=== PATIENT | male | born 2005 | race African-American/Black ===

== ENCOUNTER 2024-04-14 13:49 | Emergency (ER) | payer OTHER, MEDICAID ==
[~2024-04-14] VITALS: Ht 182.9 cm; Wt 68.3 kg
[~2024-04-14 13:49] MED LIST: ZOFR4T PO
--- NOTE | 2024-04-14 16:06 | ED.PDOC ---
History of Present Illness HPI Comments 18 YEAR OLD MALE PRESENTS TO THE ED WITH A CHIEF COMPLAINT OF TAILBONE PAIN ONSET 3 DAYS. PATIENT STATES HE IS PARAPLEGIC, USES A WHEELCHAIR, WAS GOING TO SIT ON [employer] CHAIR WHEN HE HIT A METAL PART OF CHAIR WITH HIS TAILBONE. PATIENT STATES HE HAS BEEN EXPERIENCING PAIN SINCE THEN, NOTICED PAIN WORSEN TODAY. PMHX PARAPLEGIC, KIDNEY STONES. DENIES LOC, HEAD INJURY, DYSURIA, FLANK PAIN, NAUSEA, VOMITING. NO OTHER SYMPTOMS OR MODIFYING FACTORS PRESENT AT THIS TIME. Chief Complaint: Back Pain Time Seen by MD: 15:50 Primary Care Provider: UNKNOWN Reviewed Notes: Medications, Allergies Allergies: Coded Allergies: NO KNOWN ALLERGIES (Unverified , 05/10/23) Home Meds Active Scripts Ondansetron Odt 4MG Tab (ZOFRAN PO) 4 Mg Tb, 4 MG PO Q6HP PRN, #20 TAB ODT TAB-DISSOLVE IN MOUTH, THEN SWALLOW Prov:KISHOR PRADO Mounika DO 05/10/23 Information Source: Patient Mode of Arrival: Wheelchair Severity: Moderate Timing: Days Duration: Since onset Prehospital treatment: None Past Medical History PAST MEDICAL HISTORY: Kidney Stones Past Medical History (Other): paraplegic Surgical History: Denies all surgeries Family History Family History: Unknown Social History Smoker: Non-Smoker Alcohol: Denies ETOH Use Drugs: Denies Drug Use Lives In: Home Constitutional: denies: chills, diaphoresis, fatigue, fever, malaise, sweats, weakness, others EENTM: denies: blurred vision, double vision, ear bleeding, ear discharge, ear drainage, ear pain, ear ringing, eye pain, eye redness, hearing loss, mouth pain, mouth swelling, nasal discharge, nose bleeding, nose congestion, nose p ain, photophobia, tearing, throat pain, throat swelling, voice changes, others Respiratory: denies: cough, hemoptysis, orthopnea, SOB at rest, shortness of breath, SOB with excertion, stridor, wheezing, others Cardiovascular: denies: chest pain, dizzy spells, diaphoresis, Dyspnea on exertion, edema, irregular heart beat, left arm pain, lightheadedness, palpitations, PND, syncope, others Gastrointestinal: denies: abdomen distended, abdominal pain, blood streaked bowels, constipated, diarrhea, dysphagia, difficulty swallowing, hematemesis, melena, nausea, poor appetite, poor fluid intake, rectal bleeding, rectal pain, vomiting, others Genitourinary: denies: burning, dysuria, flank pain, frequency, hematuria, incontinence, penile discharge, penile sore, pain, testicle pain, testicle swelling, urgency, others Neurological: denies: dizziness, fainting, headache, left sided numbness, left sided weakness, numbness, paresthesia, pre-existing deficit, right sided numbness, right sided weakness, seizure, speech problems, tingling, tremors, weakness, others Musculoskeletal: reports: back pain, others (Tailbone pain); denies: gout, joint pain, joint swelling, muscle pain, muscle stiffness, neck pain Integumetry: denies: bruises, change in color, change in hair/nails, dryness, laceration, lesions, lumps, rash, wounds, others Allergic/Immunocompromised: denies: Difficulty Healing, Frequent Infections, Hives, Itching, others Hematologic/Lymphatic: denies: anemia, blood clots, easy bleeding, easy bruising, swollen glands, others Endocrine: denies: excessive hunger, excessive sweating, excessive thirst, excessive urination, flushing, intolerance to cold, intolerance to heat, unexplained weight gain, unexplained weight loss, others Psychiatric: denies: anxiety, bipolar disorder, depression, hopeless, panic disorder, schizophrenia, sleepless, suicidal, others All Other Systems: Reviewed and Negative Physical Exam General Appearance: No Apparent Distress, Normal HEENT: Normal ENT Inspection, Pharynx Normal, TMs Normal Neck: Full Range of Motion, Non-Tender, Normal, Normal Inspection Respiratory: Chest Non-Tender, Lungs Clear, No Accessory Muscle Use, No Respiratory Distress, Normal Breath Sounds Cardiovascular: No Edema, No JVD, No Murmur, No Gallop, Normal Peripheral Pulses, Regular Rate/Rhythm Breast Exam: Deferred Gastrointestinal: No Organomegaly, Non Tender, No Pulsatile Mass, Normal Bowel Sounds, Soft Genitalia: Deferred Pelvic: Deferred Rectal: Deferred Extremities: No calf tenderness, Normal capillary refill, Non-tender, No pedal edema, Other (paraplegic, on a wheelchair) Musculoskeletal : Apperance: Normal Neurologic: Alert, superintendent system operation II-XII nml as Tested, No Motor Deficits, Normal Affect, Normal Mood, No Sensory Deficits Cerebellar Function: Normal Reflexes: Normal Skin: Dry, Normal Color, Warm Lymphatic: No Adenopathy Was a procedure done? Was a procedure done?: No Differential Dx Considerations may include: Coccyx fracture X-Ray, Labs, Meds, VS Vital Signs Date Time Temp Pulse Resp B/P (MAP) Pulse Ox O2 Delivery O2 Flow Rate FiO2 04/14/24 14:20 98.0 84 16 120/71 (87) 99 . [place] [id number] Ph: [phone] DIAGNOSTIC IMAGING Diagnostic Imaging Report : [id number] Signed PATIENT: YESSI DARNELL TACCT: [id number] UNIT: [id number] : 2005 LOC: ER ROOM / BED: / AGE / SEX: 18 / M ADM STATUS: REG ER SERVICE [id number] ORDERING PHYSICIAN: EMELI FERGUSON NP PROCEDURE(s): SACCX - SACRUM AND COCCYX REASON: tailbone pain ORDER NUMBER(s): [id number], ACCESSION NUMBER(s): [id number] INDICATION: tailbone pain TECHNIQUE: 4 views of the lumbar spine were obtained. COMPARISON: None FINDINGS: Poor visualization of the distal sacrum and coccyx secondary to overlying stool. Sacroiliac joints appear unremarkable. Pubic bones are intact. Right hip joint is unremarkable. IMPRESSION: 1. Limited exam Lateral view recommended. ATED BY: PIERCE EDWARD MD DICTATED DATE/TIME: 04/14/249 SIGNED BY: PIERCE EDWARD MD SIGNED DATE/TIME: 04/14/24 1629 CC: X-Ray, Labs, Meds, VS Comment Imaging: X-rays and CT scans were reviewed and interpreted by this provider, imaging shows no fractures and no pathological disease. Pending radiology review. Laboratory: Labs reviewed and interpreted by this provider. No significant abnormalities noted. Patient has prior medical visits reviewed. Med reconciliation performed Vital signs reviewed Time of 1ST Reevaluation: 16:20 Reevaluation 1ST: Unchanged Patient Education/Counseling: Diagnosis, Treatment, Prognosis, Need For Follow Up (Patient advised to follow-up in the emergency room in the next 24 to 48 hours if symptoms do not improve. Advised follow-up with PCP in the next 3 to 5 days. Patient verbalized understanding. ) Family Education/Counseling: No Family Present Departure 1 Departure Time of Disposition: 16:58 Impression: Primary Impression: Musculoskeletal pain Additional Impression: Coccyx contusion Disposition: 01 HOME / SELF CARE / HOMELESS Condition: Fair Discharged With: Self Critical Care Note Critical Care Time?: No Stability Stability form required: No I personally scribed for RM JOHNSTONP ([email or web address]) on 04/14/24 at 16:06. Electronically submitted by Madeline Esquivel ([email or web address]). I personally scribed for RM JOHNSTON QUIRK SANDER ([email or web address]) on 04/14/24 at 16:55. Electronically submitted by Madeline Esquivel ([email or web address]). RM JOHNSTON Apr 14, 2024 16:06
--- NOTE | 2024-04-14 16:32 | DVH ---
INDICATION: tailbone pain TECHNIQUE: 4 views of the lumbar spine were obtained. COMPARISON: None FINDINGS: Poor visualization of the distal sacrum and coccyx secondary to overlying stool. Sacroiliac joints ap pear unremarkable. Pubic bones are intact. Right hip joint is unremarkable. IMPRESSION: 1. Limited exam Lateral view recommended.
[2024-04-14] MEDS ORDERED: IBUP-1454 PO (17:59)
[2024-04-14 18:01] VITALS: BP 90/52; PULSE 95; RESP 16; TEMP 98; O2SAT 100
== END 2024-04-14 18:08 | disposition home or self-care (01) ==
LOC: ER 13:49
DX: S30.0XXA Contusion of lower back and pelvis, initial encounter (principal); M79.18 Myalgia, other site; G82.20 Paraplegia, unspecified; Z87.442 Personal history of urinary calculi; W22.03XA Walked into furniture, initial encounter; Y93.89 Activity, other specified; Y92.89 Other specified places as the place of occurrence of the external cause; Y99.8 Other external cause status
CPT/HCPCS: 72220